=== PATIENT | female | born 1940 | race Caucasian/White ===

== ENCOUNTER → 2016-11-05 | Outpatient (CLI) | payer OTHER ==
[~2016-11-05] MED LIST: ASPIRIN81 MG PO; CARAFATE1 GM/10 ML PO; CELECOXIB200 MG PO; COZAAR25 MG PO; DIGOX125 MCG PO; DOXEPIN HCL10 MG PO; DULERA 200 MCG8.8 GM INH; FLOVENT DISKUS50 MCG INH; FUROSEMIDE20 MG PO; GLUCOTROL 10 MG10 MG PO; JANUVIA100 MG PO; LEVAQUIN500 MG PO; LEVOTHYROXINE75 MCG PO; LORTAB 7.5-3251 EACH PO; METOCLOPRAMIDE H5 MG PO; NEURONTIN 400400 MG PO; PRAVASTATIN SOD20 MG PO; PREVACID30 MG PO; PROAIR HFA8.5 GM INH; PROTONIX40 MG PO; SINGULAIR10 MG PO; SYMBICORT 160-1 INHA INH; TOPROL XL 50 MG50 MG PO
== END ==
LOC: NM 10-31 08:00
DX: M86.171 Other acute osteomyelitis, right ankle and foot (principal)
CPT/HCPCS: 78315; A9503

== ENCOUNTER → 2016-11-25 | Outpatient (CLI) | payer OTHER ==
[~2016-11-25] VITALS: Ht 165.1 cm; Wt 87.5 kg
== END ==
LOC: OPSV 08:26
DX: E11.628 Type 2 diabetes mellitus with other skin complications (principal)
CPT/HCPCS: 36592; 82565; 84520; 96365; J0278; J7050